=== PATIENT | male | born 1950 | race Caucasian/White ===

== ENCOUNTER → 2016-05-17 | Outpatient (REF) | LOC: ZLAB.WCH 11:40 | DX: Z01.89 Encounter for other specified special examinations (principal) | CPT/HCPCS: G0103 ==

== ENCOUNTER → 2017-05-14 | Outpatient (REF) | LOC: ZLAB.WCH 18:16 | DX: Z01.89 Encounter for other specified special examinations (principal) | CPT/HCPCS: G0103 ==

== ENCOUNTER → 2017-05-20 | Outpatient (REF) ==
[2017-05-20 18:06] LABS: IRON,SERUM 87 ug/dL (35-150)
[2017-05-20 18:16] LABS: TOTAL IRON BINDING CAPACITY 327 ug/dL (261-462)
[2017-05-20 18:43] LABS: FERRITIN 54 ng/mL (18-464)
== END ==
LOC: ZLAB.WCH 17:57
PROVIDERS: Nurse Practitioner Family
DX: Z01.89 Encounter for other specified special examinations (principal)